=== PATIENT | male | born 1980 | race American Indian/Alaskan Native ===

== ENCOUNTER 2018-05-24 13:16 | Emergency (ER) | payer OTHER ==
--- NOTE | 2018-05-24 13:53 | Emergency Department Report ---
Blank Doc - Documentation Documentation: This is a 37-year-old male that presents with left sided upper abdominal pain with n/v. This initial assessment/diagnostic orders/clinical plan/treatment(s) is/are subject to change based on patient's health status, clinical progression and re- assessment by fellow clinical providers in the ED. Further treatment and workup at subsequent clinical providers discretion. Patient/guardians urged not to elope from the ED as their condition may be serious if not clinically assessed and managed. Initial orders include: 1- Patient sent to [facility] for further evaluation and treatment 2- labs 3- UA
[2018-05-24 14:28] LABS: Basophils # (Auto) 0.1 K/mm3 (0.0-0.1); Basophils % (Auto) 0.5 % (0.0-1.8); Hematocrit 46.1 % (35.5-45.6); Hemoglobin 15.5 gm/dl (11.8-15.2); Lymphocytes # (Auto) 1.7 K/mm3 (1.2-5.4); Lymphocytes % (Auto) 16.3 % (13.4-35.0); Mean Corpuscular HGB Conc 34 % (32-34); Mean Corpuscular Volume 91 fl (84-94); Monocytes # (Auto) 1.1 K/mm3 (0.0-0.8); Monocytes % (Auto) 10.9 % (0.0-7.3); Platelet Count 270 K/mm3 (140-440); Red Blood Count 5.08 M/mm3 (3.65-5.03); Red Cell Distribution Width 14.8 % (13.2-15.2)
[2018-05-24 14:51] LABS: Alanine Aminotransferase 33 units/L (7-56); Albumin 4.7 g/dL (3.9-5); BUN/Creatinine Ratio 11; Blood Urea Nitrogen 11 mg/dL (9-20); Calcium 9.7 mg/dL (8.4-10.2); Hemolysis Index 4
[2018-05-24 14:52] LABS: Bilirubin,Direct < 0.2 mg/dL (0-0.2)
[2018-05-24] MEDS ORDERED: NACL 0.9% 1000 ML 1,000 ML IV ONE (15:58)
[2018-05-24] MEDS ORDERED: K-DUR PO ONE ×2 (15:58→19:00)
[2018-05-24] MEDS ORDERED: ZOFRAN IV ONE (15:58)
[2018-05-24] MEDS ORDERED: BENADRYL IV ONE (16:05)
[2018-05-24] MEDS ORDERED: REGLAN IV ONE (16:05)
--- NOTE | 2018-05-24 16:10 | Emergency Department Report ---
<AUSTIN MARTINEZ A - Last Filed: 05/24/18 18:39> ED N/V/D HPI - General Chief complaint: Nausea/Vomiting/Diarrhea Stated complaint: N/V/D Time Seen by Provider: 05/24/18 13:52 - Related Data Previous Rx's Medication Instructions Recorded Last Taken Type Ondansetron [Zofran Odt] 4 mg PO Q8HR PRN #10 tab.rapdis 05/24/18 Unknown Rx Allergies Allergy/AdvReac Type Severity Reaction Status Date / Time No Known Allergies Allergy Verified 03/08/13 12:22 ED Past Medical Hx - Medications Home Medications: Home Medications Medication Instructions Recorded Confirmed Last Taken Type Ondansetron [Zofran Odt] 4 mg PO Q8HR PRN #10 tab.keldis 05/24/18 Unknown Rx ED Medical Decision Making - Lab Data Result diagrams: 05/24/18 14:14 05/24/18 14:14 - Radiology Data Radiology results: report reviewed - Medical Decision Making Lab Results 05/24/18 05/24/18 Range/Units 14:14 14:14 WBC 10.4 (4.5-11.0) K/mm3 RBC 5.08 H (3.65-5.03) M/mm3 Hgb 15.5 H (11.8-15.2) gm/dl Hct 46.1 H (35.5-45.6) % MCV 91 (84-94) fl MCH 31 (28-32) pg MCHC 34 (32-34) % RDW 14.8 (13.2-15.2) % Plt Count 270 (140-440) K/mm3 Lymph % (Auto) 16.3 (13.4-35.0) % [place] % (Auto) 10.9 H (0.0-7.3) % Eos % (Auto) 0.0 (0.0-4.3) % Baso % (Auto) 0.5 (0.0-1.8) % Lymph # 1.7 (1.2-5.4) K/mm3 [place] # 1.1 H (0.0-0.8) K/mm3 Eos # 0.0 (0.0-0.4) K/mm3 Baso # 0.1 (0.0-0.1) K/mm3 Seg Neutrophils % 72.3 H (40.0-70.0) % Seg Neutrophils # 7.5 (1.8-7.7) K/mm3 Sodium 140 (137-145) mmol/L Potassium 3.3 L (3.6-5.0) mmol/L Chloride 94.2 L (98-107) mmol/L Carbon Dioxide 32 H (22-30) mmol/L Anion Gap 17 mmol/L BUN 11 (9-20) mg/dL Creatinine 1.0 (0.8-1.5) mg/dL Estimated GFR > 60 ml/min BUN/Creatinine Ratio 11 % Glucose 108 H (75-100) mg/dL Calcium 9.7 (8.4-10.2) mg/dL Total Bilirubin 0.80 (0.1-1.2) mg/dL Direct Bilirubin < 0.2 (0-0.2) mg/dL AST 14 (5-40) units/L ALT 33 (7-56) units/L Alkaline Phosphatase 66 (35-129) units/L Total Protein 8.8 H (6.3-8.2) g/dL Albumin 4.7 (3.9-5) g/dL Albumin/Globulin Ratio 1.1 % Lipase 65 H (13-60) units/L Vital Signs 05/24/18 05/24/18 13:53 16:48 Temperature 98 F Pulse Rate 72 Respiratory 18 16 Rate Blood Pressure 144/69 O2 Sat by Pulse [address] noted- no acute issues DC home with treatment of gastroenteritis and follow up with PCP/GI for comparison imaging and following of non acute issues. ED Disposition Clinical Impression: Gastroenteritis Disposition: DC-01 TO HOME OR SELFCARE Is pt being admited?: No Does the pt Need Aspirin: No Condition: Stable Instructions: Gastroenteritis (ED) Additional Instructions: diet as tolerated advance slowly bland to start hydrate well with water motrin or tylenol for pain or fever med as ordered today this is time limited and should improved YOU DO HAVE SOME CHRONIC CHANGES ON YOUR CT THAT WILL REQUIRE YOU TO FOLLOW UP WITH A GI DOCTOR. PO GIVEN YOU MAY REFERRALS BELOW. Prescriptions: Ondansetron [Zofran Odt] 4 mg PO Q8HR PRN #10 tab.rapdis PRN Reason: Vomiting Referrals: FADI BECERRIL MD [Primary Care Provider] - 3-5 Days RG ROGER MD [Staff Physician] - 3-5 Days MATTHIEU MOLINA MD [Staff Physician] - 3-5 Days VIAD HENDERSON MD [Staff Physician] - 3-5 Days Time of Disposition: 18:31 <ALVAREZPAPA C - Last Filed: 05/25/18 14:32> ED N/V/D HPI - General Source: patient Mode of arrival: Ambulatory Limitations: No Limitations - History of Present Illness Initial comments: 37 year old male with a past medical history of GERD and denies previous surgical history presents to the hospital complaining of nausea, vomiting, abdominal pain for the past 4 days. Patient is intermittent left abdominal pain which he describes as feeling like something is closing in. Pain is rated 8/10 in intensity and worse with palpation. Patient persists of nausea and vomiting with by mouth and tolerance. He denies fever, melena, hematochezia, hematemesis, dysuria, or hematuria. Other family members at home also have some nausea vomiting or diarrhea patient was seen at an urgent care clinic several days ago and taking azithromycin and Zofran (4 mg twice a day) without relief. ED Review of Systems ROS: Stated complaint: N/V/D Other details as noted in HPI Comment: All other systems reviewed and negative ED Past Medical Hx - Past Medical History Previous Medical History?: Yes Hx GERD: Yes - Surgical History Past Surgical History?: No - Social History Smoking Status: Unknown if ever smoked Substance Use Type: None ED Physical Exam - General Limitations: No Limitations - Other Other exam information: General: No limitations, patient is alert in no acute distress Head exam: Atraumatic, normocephalic Eyes exam: Normal appearance, nonicteric sclerae intact ENT: Moist mucous membrane Neck exam: Normal inspection, full range of motion, no meningismus nontender Respiratory exam: Clear to auscultation bilateral, no wheezes, rales, crackles Cardiovascular: Normal rate and rhythm, normal heart sounds Abdomen: Soft, nondistended, mild left lower quadrant tenderness, with normal bowel sounds, no rebound, or guarding. Intermittent vomiting nonbilious and nonbloody Extremity: Full range of motion normal inspection no deformity Back: Normal Inspection, full range of motion, no tenderness Neurologic: Alert, oriented x3, cranial nerves intact, no motor or sensory deficit Psychiatric: normal affect, normal mood Skin: Warm, dry, intact ED Course Vital Signs 05/24/18 05/24/18 05/24/18 13:53 16:48 19:12 Temperature 98 F 98.6 F Pulse Rate 72 70 Respiratory 18 16 15 Rate Blood Pressure 144/69 Blood Pressure 115/71 [Right] O2 Sat by Pulse 98 97 Oximetry - Reevaluation(s) Reevaluation #1: 05/24/18 17:03 s/o to [facility] to f/u ct abd/pelvis, UA, and assess sx for improvement Patient developed hiccups after receiving Reglan, Zofran, Benadryl, and initiation of normal saline. Thorazine ordered. PO potassium pending by mouth tolerance ED Medical Decision Making - Lab Data Result diagrams: 05/24/18 14:14 05/24/18 14:14 Lab Results 05/24/18 05/24/18 Range/Units 14:14 14:14 WBC 10.4 (4.5-11.0) K/mm3 RBC 5.08 H (3.65-5.03) M/mm3 Hgb 15.5 H (11.8-15.2) gm/dl Hct 46.1 H (35.5-45.6) % MCV 91 (84-94) fl MCH 31 (28-32) pg MCHC 34 (32-34) % RDW 14.8 (13.2-15.2) % Plt Count 270 (140-440) K/mm3 Lymph % (Auto) 16.3 (13.4-35.0) % [place] % (Auto) 10.9 H (0.0-7.3) % Eos % (Auto) 0.0 (0.0-4.3) % Baso % (Auto) 0.5 (0.0-1.8) % Lymph # 1.7 (1.2-5.4) K/mm3 [place] # 1.1 H (0.0-0.8) K/mm3 Eos # 0.0 (0.0-0.4) K/mm3 Baso # 0.1 (0.0-0.1) K/mm3 Seg Neutrophils % 72.3 H (40.0-70.0) % Seg Neutrophils # 7.5 (1.8-7.7) K/mm3 Sodium 140 (137-145) mmol/L Potassium 3.3 L (3.6-5.0) mmol/L Chloride 94.2 L (98-107) mmol/L Carbon Dioxide 32 H (22-30) mmol/L Anion Gap 17 mmol/L BUN 11 (9-20) mg/dL Creatinine 1.0 (0.8-1.5) mg/dL Estimated GFR > 60 ml/min BUN/Creatinine Ratio 11 % Glucose 108 H (75-100) mg/dL Calcium 9.7 (8.4-10.2) mg/dL Total Bilirubin 0.80 (0.1-1.2) mg/dL Direct Bilirubin < 0.2 (0-0.2) mg/dL AST 14 (5-40) units/L ALT 33 (7-56) units/L Alkaline Phosphatase 66 (35-129) units/L Total Protein 8.8 H (6.3-8.2) g/dL Albumin 4.7 (3.9-5) g/dL Albumin/Globulin Ratio 1.1 % Lipase 65 H (13-60) units/L - Differential Diagnosis gastroenteritis, diverticulitis, renal colic, UTI, pancreatitis, dehydratio Critical Care Time: No Critical care attestation.: If time is entered above; I have spent that time in minutes in the direct care of this critically ill patient, excluding procedure time. ED Disposition Is pt being admited?: No Does the pt Need Aspirin: No
[2018-05-24] MEDS ORDERED: THORAZINE 25 MG in NACL 0.9% 50 ML IV ONE (16:54)
--- NOTE | 2018-05-24 18:15 | Cat Scan Report ---
PROCEDURE: CT ABDOMEN PELVIS W CON TECHNIQUE: The patient was injected with IV contrast a routine axial cuts prior to and pelvis sagitt al and coronal reconstructions submitted CTDI 55 DLP 3039 HISTORY: n,v left sided abd pain COMPARISONS: None FINDINGS: No consolidation at the lung bases Small hiatal hernia Thick wall nondistended stomach No free air No free fluid No bowel dilatation No inflammatory changes around the cecum appendix or sigmoid Nondistended left hemicolon without inflammatory changes around it if there is concern for colitis fo llow-up oral contrast may be helpful as clinically warranted Hepatomegaly with an enlarged elongated left lobe of the liver which overlies the spleen suggest comp arison to prior study to document stability or follow-up MRI with contrast for complete evaluation, t he liver is inhomogeneous Gallbladder biliary tract and pancreas unremarkable Unremarkable spleen with multiple assumed calcified granulomata Symmetric enhancement of the kidneys without hydronephrosis No perinephric collection Assumed small adenoma lateral limb of the left adrenal, suggest comparison to prior study or follow-u p in 3-6 months Right adrenal unremarkable No aortic dissection No aortic aneurysm No retroperitoneal collection Prostate and bladder are unremarkable Osseous structures within normal limits IMPRESSION: Hepatomegaly with an enlarged elongated left lobe of the liver which overlies the spleen suggest comp arison to prior study to document stability or follow-up MRI with contrast for complete evaluation, t he liver is inhomogeneous Assumed small adenoma lateral limb of the left adrenal, suggest comparison to prior study or follow-u p in 3-6 months Nondistended left hemicolon without inflammatory changes around it if there is concern for colitis fo llow-up oral contrast may be helpful as clinically warranted. This document is electronically signed by Gianfranco Henriquez MD., May 24 2018 06:13:37 PM ET
[2018-05-24 19:14] VITALS: BP 115/71
== END 2018-05-24 19:55 | disposition home or self-care (01) ==
LOC: ED 13:16
DX: K52.9 Noninfective gastroenteritis and colitis, unspecified (principal); K21.9 Gastro-esophageal reflux disease without esophagitis
CPT/HCPCS: 36415; 74177; 80048; 80076; 83690; 85025; 96361; 96365; 96375; 99284; J1200; J2405; J2765; J3230; J7030; Q9967

== ENCOUNTER 2018-05-27 21:05 | Emergency (ER) | payer OTHER ==
[2018-05-27] MEDS ORDERED: NACL 0.9% 1000 ML 1,000 ML IV ONE ×2 (21:18→21:45)
[2018-05-27] MEDS ORDERED: ZOFRAN IV ONE (21:45)
--- NOTE | 2018-05-27 21:45 | Emergency Department Report ---
ED Syncope HPI - General Chief Complaint: Syncope Stated Complaint: SYNCOPE Time Seen by Provider: 05/27/18 21:33 Source: patient - History of Present Illness Initial Comments: 37-year-old male presents to the ED following a syncopal episode. Patient reports nausea, vomiting, diarrhea 5 days. Patient was seen here couple of days ago and diagnosed with gastroenteritis. Patient had negative CT scan at that time, was discharged with prescription for Zofran. Patient states he is still symptomatic, however has been attempting to drink Pedialyte and Powerade and eat jello. States he was taking a shower this evening when he began to feel lightheaded, and then passed out. Patient denies chest pain, shortness of breath. Patient reports pain to the back of his head. Denies neck pain. Patient states his baby is sick at home with same symptoms and believes he may have gotten it from her. Timing/Prior Episodes: no prior history Precipitating Factors: Positive: lightheadedness. Negative: blurred vision, confusion, recent head trauma, rapid heart beat Context: standing Loss of Consciousness: brief (seconds) Current Symptoms: back to normal, headache, lightheadedness. denies: chest pain - Related Data Allergies/Adverse Reactions: Allergies No Known Allergies Allergy (Verified 03/08/13 12:22) Home Medications: Ambulatory Orders Ondansetron [Zofran Odt] 4 mg PO Q8HR PRN #10 tab.rapdis 05/24/18 ED Review of Systems ROS: Stated complaint: SYNCOPE Other details as noted in HPI Comment: All other systems reviewed and negative Constitutional: denies: chills, fever Respiratory: denies: shortness of breath Cardiovascular: denies: chest pain, palpitations Gastrointestinal: abdominal pain, nausea, vomiting, diarrhea Neurological: headache. denies: numbness, paresthesias ED Past Medical Hx - Past Medical History Previous Medical History?: Yes Hx GERD: Yes - Surgical History Past Surgical History?: No - Social History Smoking Status: Never Smoker Substance Use Type: None - Medications Home Medications: Home Medications Medication Instructions Recorded Confirmed Last Taken Type Ondansetron [Zofran Odt] 4 mg PO Q8HR PRN #10 tab.rapdis 05/24/18 05/27/18 05/27/18 Rx ED Physical Exam - General Limitations: No Limitations General appearance: alert, in no apparent distress - Head Head exam: Present: atraumatic, normocephalic, normal inspection - Eye Eye exam: Present: normal appearance, PERRL, EOMI - ENT ENT exam: Present: mucous membranes moist - Neck Neck exam: Present: normal inspection, full ROM. Absent: tenderness - Respiratory Respiratory exam: Present: normal lung sounds bilaterally. Absent: respiratory distress - Cardiovascular Cardiovascular Exam: Present: regular rate, normal rhythm - GI/Abdominal GI/Abdominal exam: Present: soft, tenderness (mild LUQ tenderness). Absent: distended - Extremities Exam Extremities exam: Present: normal inspection - Neurological Exam Neurological exam: Present: alert, oriented X3, CN II-XII intact. Absent: motor sensory deficit - Psychiatric Psychiatric exam: Present: normal affect, normal mood - Skin Skin exam: Present: warm, dry, intact, normal color ED Course Vital Signs 05/27/18 05/27/18 21:12 23:25 Temperature 97.9 F Pulse Rate 76 81 Respiratory 18 19 Rate Blood Pressure 123/70 Blood Pressure 115/72 [Left] O2 Sat by Pulse 100 98 Oximetry ED Medical Decision Making - Lab Data Result diagrams: 05/27/18 21:29 05/27/18 21:29 - EKG Data -: EKG Interpreted by In EKG shows normal: sinus rhythm, axis, intervals, QRS complexes, ST-T waves - EKG Data Interpretation: no acute changes - Medical Decision Making - syncope due to dehydration from gastroenteritis - IV fluid bolus given - feeling much better at this time - PO challenge done, no emesis here in ED - hypokalemic at 2.6, PO potassium given - outpatient follow-up advised - return precautions given - Differential Diagnosis dehydration, acute renal failure, electrolyte abnormality Critical care attestation.: If time is entered above; I have spent that time in minutes in the direct care of this critically ill patient, excluding procedure time. ED Disposition Clinical Impression: Syncope, Dehydration, Gastroenteritis, Hypokalemia Disposition: - TO HOME OR SELFCARE Is pt being admited?: No Condition: Stable Instructions: Dehydration (ED), Hypokalemia (ED), Syncope (ED) Referrals: FADI BECERRIL MD [Primary Care Provider] - 3-5 Days Time of Disposition: 00:16
[2018-05-27 22:11] LABS: Basophils % (Auto) 0.6 % (0.0-1.8); Eosinophils % (Auto) 0.5 % (0.0-4.3); Hematocrit 44.9 % (35.5-45.6); Hemoglobin 15.2 gm/dl (11.8-15.2); Lymphocytes # (Auto) 1.7 K/mm3 (1.2-5.4); Lymphocytes % (Auto) 26.6 % (13.4-35.0); Mean Corpuscular HGB Conc 34 % (32-34); Mean Corpuscular Volume 91 fl (84-94); Monocytes # (Auto) 0.9 K/mm3 (0.0-0.8); Monocytes % (Auto) 14.2 % (0.0-7.3); Platelet Count 291 K/mm3 (140-440); Red Blood Count 4.97 M/mm3 (3.65-5.03); Red Cell Distribution Width 14.1 % (13.2-15.2)
[2018-05-27 22:28] LABS: Alanine Aminotransferase 80 units/L (7-56); Albumin 4.3 g/dL (3.9-5); BUN/Creatinine Ratio 8; Blood Urea Nitrogen 11 mg/dL (9-20); Calcium 9.1 mg/dL (8.4-10.2); Hemolysis Index 11
--- NOTE | 2018-05-27 22:33 | Cat Scan Report ---
PROCEDURE: CT HEAD/BRAIN WO CON TECHNIQUE: Computerized tomography of the head was performed without contrast material. CT DOSE LENGTH PRODUCT: mGycm HISTORY: head injury, pain COMPARISONS: None . FINDINGS: Skull and scalp: Normal . Paranasal sinuses: Normal . Ventricles and subarachnoid spaces: Normal . Cerebrum: No evidence of hemorrhage, acute infarction or mass . Cerebellum and brainstem: No evidence of hemorrhage, acute infarction or mass . Vasculature: Normal . IMPRESSION: Normal Examination . This document is electronically signed by Isidro Brower MD., May 27 2018 10:31:24 PM ET
[2018-05-27] MEDS ORDERED: K-DUR PO ONE (22:35)
[2018-05-27 23:26] VITALS: BP 115/72
== END 2018-05-28 00:35 | disposition home or self-care (01) ==
LOC: ED 21:05
DX: E86.0 Dehydration (principal); K52.9 Noninfective gastroenteritis and colitis, unspecified; R55 Syncope and collapse; E87.6 Hypokalemia
CPT/HCPCS: 36415; 70450; 80053; 85025; 93005; 93010; 96361; 96374; 99284; J2405; J7030

== ENCOUNTER 2020-11-07 11:45 | Emergency (ER) | payer BC, OTHER ==
[2020-11-07] MEDS ORDERED: HYDROcodone/ACETAMINOPHEN 5-325 MG TAB PO ONE (13:16)
--- NOTE | 2020-11-07 13:22 | Emergency Department Report ---
HPI <GRETA WLILIAM - Last Filed: 11/07/20 16:36> - HPI HPI: MSE 3 The patient is a 40-year-old male present with a chief complaint of back pain. Patient states he developed pain in his back 2 days ago after getting off of work. The patient states he does [employer] work and occasionally lifts and landon ies objects but does not recall a specific injury/event at work. The patient states the following day the pain worsened in the low back paraspinous regions. Patient denies history of fever or abdominal pain. Patient denies dysuria or hematuria. Patient denies nausea vomiting but states has been constipated. The patient currently gives his pain a score of 0/10 while sitting still. <LORIE CONLEY - Last Filed: 11/12/20 15:36> - General Chief Complaint: Back Pain/Injury Time Seen by Provider: 11/07/20 13:06 ED Past Medical Hx <GRETA WILLIAM - Last Filed: 11/07/20 16:36> - Past Medical History Previous Medical History?: Yes Hx GERD: Yes - Surgical History Past Surgical History?: No - Family History Family history: no significant - Social History Smoking Status: Former Smoker Substance Use Type: None (Denies illicit drug use), Alcohol (Occasional) <LORIE CONLEY - Last Filed: 11/12/20 15:36> - Medications Home Medications: Home Medications Medication Instructions Recorded Confirmed Last Taken Type Ondansetron [Zofran Odt] 4 mg PO Q8HR PRN #10 tab.rapdis 05/24/18 05/27/18 05/27/18 Rx Cyclobenzaprine [Flexeril] 10 mg PO TID PRN #10 tablet 11/07/20 Unknown Rx HYDROcodone/APAP 5-325 [[place] 1 - 2 each PO Q6HR PRN #10 tablet 11/07/20 Unknown Rx 5/325] Ibuprofen [Motrin 800 MG tab] 800 mg PO Q8HR PRN #20 tablet 11/07/20 Unknown Rx ED Review of Systems ROS: Stated complaint: BACK PAIN Other details as noted in HPI <GRETA WILLIAM - Last Filed: 11/07/20 16:36> ROS: Stated complaint: BACK PAIN Other details as noted in HPI Constitutional: denies: fever Eyes: denies: eye pain ENT: denies: throat pain Respiratory: no symptoms reported Cardiovascular: denies: chest pain Endocrine: no symptoms reported Gastrointestinal: constipation. denies: abdominal pain, nausea, vomiting Genitourinary: denies: dysuria, hematuria Musculoskeletal: back pain Neurological: denies: headache <LORIE CONLEY - Last Filed: 11/12/20 15:36> Physical Exam - Physical Exam Vital Signs: Vital Signs 11/07/20 11/07/20 11/07/20 12:58 13:55 14:07 Temperature 98.6 F 98.1 F Pulse Rate 75 74 Respiratory 18 18 16 Rate Blood Pressure 137/86 123/80 O2 Sat by Pulse 100 100 Oximetry <GRETA WILLIAM - Last Filed: 11/07/20 16:36> - Physical Exam Vital Signs: Vital Signs 11/07/20 12:58 Temperature 98.6 F Pulse Rate 75 Respiratory 18 Rate Blood Pressure 137/86 O2 Sat by Pulse 100 Oximetry Physical Exam: GENERAL: The patient is well-developed well-nourished male sitting on stretcher not appearing to be in acute distress. [] HEENT: Normocephalic. Atraumatic. Extraocular motions are intact. Patient has moist mucous membranes. NECK: Supple. Trachea midline CHEST/LUNGS: There is no respiratory distress noted. HEART/CARDIOVASCULAR: Regular. There is no tachycardia. There is no gallop rub or murmur. ABDOMEN: Abdomen is soft, nontender. Patient has normal bowel sounds. There is no abdominal distention. SKIN: There is no rash. There is no edema. There is no diaphoresis. NEURO: The patient is awake, alert, and oriented. The patient is cooperative. The patient has no focal neurologic deficits. The patient has normal speech MUSCULOSKELETAL: There is paraspinous lumbar pain. There is no CVA tenderness. <LORIE CONLEY - Last Filed: 11/12/20 15:36> ED Course Vital Signs 11/07/20 11/07/20 11/07/20 12:58 13:55 14:07 Temperature 98.6 F 98.1 F Pulse Rate 75 74 Respiratory 18 18 16 Rate Blood Pressure 137/86 123/80 O2 Sat by Pulse 100 100 Oximetry <GRETA WILLIAM - Last Filed: 11/07/20 16:36> Vital Signs 11/07/20 12:58 Temperature 98.6 F Pulse Rate 75 Respiratory 18 Rate Blood Pressure 137/86 O2 Sat by Pulse 100 Oximetry <LORIE CONLEY - Last Filed: 11/12/20 15:36> ED Medical Decision Making - Lab Data Result diagrams: 11/07/20 13:57 11/07/20 13:57 <GRETA WILLIAM - Last Filed: 11/07/20 16:36> - Lab Data Result diagrams: 11/07/20 13:57 11/07/20 13:57 - Radiology Data Radiology results: report reviewed (Lumbar spine x-ray), image reviewed (Lumbar spine x-ray) interpreted by me: Lumbar spine x-ray-no acute fracture, no dislocation. Normal alignment [facility] [address] [place] [address] XRay Report Signed Patient: ANTHONY ANDRE MR#: [id number] : 1980 Acct:[id number] Age/Sex: 40 / M ADM Date: 11/07/20 Loc: ED Attending Dr: Ordering Physician: LORIE CONLEY MD Date of Service: 11/07/20 Procedure(s): XR spine lumbosacral 2-3V Accession Number(s): [id number] cc: LORIE CONLEY MD Fluoro Time In Minutes: XR spine lumbosacral 2-3V HISTORY: Pain with movement COMPARISON: None. TECHNIQUE: 3 view(s) of the lumbar spine obtained. FINDINGS: Vertebrae: Leftward curvature with apex at L3-L4. 2 mm retrolisthesis of L5 on S1. Vertebral body heights are preserved. Spondylosis:Disc space heights are preserved. IMPRESSION: 1. No acute findings. Signer Name: Leeroy Waggoner MD Signed: 11/07/2020 1:43 PM Workstation Name: [id number] Transcribed By: CS Dictated By: Leeroy Waggoner MD Electronically Authenticated By: Leeroy Waggoner MD Signed Date/Time: 11/07/20 1343 DD/ 1342 TD/TT: Print Cancel - Differential Diagnosis Lumbar strain, occult fracture, UTI, pyelonephritis <LORIE CONLEY - Last Filed: 11/12/20 15:36> Critical care attestation.: If time is entered above; I have spent that time in minutes in the direct care of this critically ill patient, excluding procedure time. <GRETA WILLIAM - Last Filed: 11/07/20 16:36> Critical care attestation.: If time is entered above; I have spent that time in minutes in the direct care of this critically ill patient, excluding procedure time. <LORIE CONLEY - Last Filed: 11/12/20 15:36> ED Disposition Time of Disposition: 16:37 <GRETA WILLIAM - Last Filed: 11/07/20 16:36> Is pt being admited?: No Does the pt Need Aspirin: No <LORIE CONLEY - Last Filed: 11/12/20 15:36> Clinical Impression: Acute myofascial strain of lumbar region Disposition: 01 HOME / SELF CARE / HOMELESS Condition: Stable Instructions: Lumbar Strain Additional Instructions: Return to the emergency department should you develop worsening symptoms, inability to tolerate food or liquids, high fever or any other concerns Prescriptions: Cyclobenzaprine [Flexeril] 10 mg PO TID PRN #10 tablet PRN Reason: Muscle Spasm Ibuprofen [Motrin 800 MG tab] 800 mg PO Q8HR PRN #20 tablet PRN Reason: Pain, Moderate (4-6) HYDROcodone/APAP 5-325 [[place] 5/325] 1 - 2 each PO Q6HR PRN #10 tablet PRN Reason: Pain Referrals: JOIE OSHEA MD [Staff Physician] - 3-5 Days (Dr. Oshea is an orthopedic surgeon. Please follow-up with him for further evaluation) Forms: Work/School Release Form(ED)
--- NOTE | 2020-11-07 13:47 | XRay Report ---
XR spine lumbosacral 2-3V HISTORY: Pain with movement COMPARISON: None. TECHNIQUE: 3 view(s) of the lumbar spine obtained. FINDINGS: Vertebrae: Leftward curvature with apex at L3-L4. 2 mm retrolisthesis of L5 on S1. Vertebral body hei ghts are preserved. Spondylosis:Disc space heights are preserved. IMPRESSION: 1. No acute findings. Signer Name: Leeroy Waggoner MD Signed: 11/07/2020 1:43 PM Workstation Name: [id number]
[2020-11-07 14:38] LABS: Basophils % (Auto) 0.7 % (0.0-1.8); Eosinophils # (Auto) 0.1 K/mm3 (0.0-0.4); Hematocrit 42.1 % (35.5-45.6); Hemoglobin 14.3 gm/dl (11.8-15.2); Lymphocytes # (Auto) 1.8 K/mm3 (1.2-5.4); Mean Corpuscular HGB Conc 34 % (32-34); Mean Corpuscular Volume 92 fl (84-94); Monocytes # (Auto) 0.8 K/mm3 (0.0-0.8); Monocytes % (Auto) 13.1 % (0.0-7.3); Platelet Count 243 K/mm3 (140-440); Red Blood Count 4.58 M/mm3 (3.65-5.03); Red Cell Distribution Width 14.4 % (13.2-15.2)
[2020-11-07 14:42] LABS: BUN/Creatinine Ratio 10; Blood Urea Nitrogen 10 mg/dL (9-20); Calcium 9.7 mg/dL (8.4-10.2); Hemolysis Index 7
[2020-11-07 15:43] LABS: Bacteria,Urine 1+ /HPF (Negative); Bilirubin,Urine NEG (Negative); Blood,Urine NEG (Negative); Color,Urine Yellow (Yellow); Mucus,Urine FEW /HPF; Protein,Urine <15 mg/dL mg/dL (Negative); Urobilinogen,Urine < 2.0 mg/dL (<2.0)
[2020-11-07 17:25] VITALS: BP 114/79
== END 2020-11-07 17:25 ==
LOC: ED 11:45
DX: S39.012A Strain of muscle, fascia and tendon of lower back, initial encounter (principal); K21.9 Gastro-esophageal reflux disease without esophagitis; X50.0XXA Overexertion from strenuous movement or load, initial encounter; Y93.89 Activity, other specified; Y92.89 Other specified places as the place of occurrence of the external cause; Y99.8 Other external cause status
CPT/HCPCS: 36415; 72100; 80048; 81001; 85025; 99284